=== PATIENT | male | born 1990 | race Caucasian/White ===

== ENCOUNTER 2023-03-01 22:09 | Emergency (ER) | payer OTHER, SELFPAY ==
[2023-03-01 22:13] VITALS: BP 138/94; PULSE 76; O2SAT 98
[2023-03-01 22:35] VITALS: BP 127/79; PULSE 68; RESP 18; TEMP 36.8; BMI 28.3
[2023-03-01 23:22] LABS: Amphetamine Screen Urine Not Detected (Not Detect); Barbiturates, Urine Not Detected (Not Detect); Benzodiazepines Screen Urine Not Detected (Not Detect); Cannabinoid Screen Urine POSITIVE (Not Detect); Cocaine Screen Urine POSITIVE (Not Detect); Fentanyl, urine POSITIVE (Not Detect); Opiate Screen Urine Not Detected (Not Detect); Phencyclidine Screen Urine Not Detected (Not Detect)
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
--- NOTE | 2023-03-02 02:21 | PC.NURSE ---
PT ASLEEP COMFORTABLY ON STRETCHER RESPIRATIONS EVEN AND UNLABORED. PT WOKEN UP BY PROVIDER STATES HE WANTS DETOX UNABLE TO EXPLAIN FURTHER OR ANSWER QUESTIONS PT STATES HE JUST WANTS TO SLEEP AND WANTS TO SEE RECOVERY TEAM IN AM
[2023-03-02 02:22] VITALS: RESP 16
--- NOTE | 2023-03-02 03:57 | PC.NURSE ---
Assumed care of pt. Completed assessments as documented. Pt lying on stretcher, eyes closed, respirations even and unlabored. No acute distress at this time.
[2023-03-02 04:00] VITALS: RESP 16
[2023-03-02 06:26] VITALS: BP 114/81; PULSE 67; RESP 16; TEMP 36.6; O2SAT 99
--- NOTE | 2023-03-02 06:27 | PC.NURSE ---
Pt interested in detox. Pt reports he smoked crack on the way to the ED. Pt reports 10/10 left lower back pain and left hand pain. Pt denies SI/HI Plan of care ongoing.
--- NOTE | 2023-03-02 07:10 | PC.NURSE ---
Report and hand off given to oncoming ALVA felton.
--- NOTE | 2023-03-02 07:11 | PC.NURSE ---
Pt changed over with security on arrival to ED. Pt requested and given hospital phone.
[2023-03-02 07:59] VITALS: BP 105/65; PULSE 69; RESP 18; O2SAT 98
--- NOTE | 2023-03-02 08:57 | PC.NURSE ---
Calm and cooperative, resting comfortably in bed, breathing even and unlabored
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
[2023-03-02] MEDS: Naloxone HCl Nasal TAKE HOME 4 MG SPRAY 8 MG NOSTRILALT (10:40)
== END 2023-03-02 10:40 | disposition home or self-care (01) ==
PROVIDERS: Internal Medicine; Emergency Provider Emergency Medicine Emergency Medical Services
DX: F14.19 Cocaine abuse with unspecified cocaine-induced disorder (principal); F11.19 Opioid abuse with unspecified opioid-induced disorder; Z71.51 Drug abuse counseling and surveillance of drug abuser; Z79.899 Other long term (current) drug therapy
CPT/HCPCS: 80307; 99284

== ENCOUNTER 2024-09-09 01:28 | Inpatient (IN) | payer OTHER, SELFPAY ==
[2024-09-09 01:31] VITALS: BP 134/99; PULSE 95; RESP 18; TEMP 36.7; O2SAT 98; BMI 31.9
--- OUTSIDE RECORDS SUMMARY | 2024-09-09 01:52 | XMS_ITS | Clinical Summary ---
Author Organization [facility] Address [address] [place] [address] Care Team Providers Care Blueprinting And Photocopy Supervisor Name Role Phone Bryson Smith MD Primary Care Provider [phone] Allergies No known active allergies Medications * This document contains information received from the source organization and may not represent a complete record from that organization. lithium 150 mg capsule 01/15/2023 Active QUEtiapine (SEROquel) 200 mg tablet Take 200 mg by mouth nightly. Active Social History Tobacco Use Types Packs/Day Years Used Date Smoking Tobacco: Every Day Cigarettes Tobacco Cessation:Ready to Q uit: Not Asked; Counseling Given: Not Answered Alcohol Use Standard Drinks/Week Comments Yes 0 (1 standard drink = 0.6 oz pur e alcohol) Sex and Gender Information Value Date Recorded Sex Assigned at Not on file Legal Sex Male 6:54 PM EDT Gender Identity Not on file Sexual Orientation Not on file Last Filed Vital Signs Vital Sign [place] Time Taken Comments Blood Pressure 124/80 02/10/2023 9:52 AM EDT Pulse 85 02/10/2023 9:52 AM EDT Temperature 36.9 ??C (98.5 ??F) 02/10/2023 9:52 AM ED T Respiratory Rate 16 02/10/2023 9:52 AM EDT Oxygen Saturation 98% 02/10/2023 9:52 AM EDT Inhaled Oxygen Concentration - - Weight 113.4 kg (250 lb) 02/10/2023 12:01 PM EDT Height 180.3 cm (5' 11 ) 02/09/2023 5:00 AM EDT Body Mass Index 34.87 02/09/2023 5:00 AM EDT Plan of Treatment Health Maintenance Due Date Last Done Comments HIV Screening 1992 Varicella Vaccines (2 of 2 - 2-dose childhood series) 10/15/1997 07/23/1997 COVID-19 Vaccine (2 - 4-2 5 season) 2024 09/14/2020 Alcohol/Substance Use Screening 06/10/2024 Influenza Vaccine (Season Ended) 2025 DTaP,Tdap,and Td Vaccines (2 - Td or Tdap) 07/01/2025 07/01/2015 RSV Vaccine (60+ years old and patients) (1 - 1-dose 75+ series) 02/19/2067 Hepatitis B Vaccines Completed 07/23/1997, 01/28/1997, 12/17/1996 Pneumococcal Vaccine: Pediatric (0-5 Years) and At-Risk Patients (6-50 Years) Aged Out No longer eligible based on patient's age to complete this topic Insurance [facility] Care Teams Blueprinting And Photocopy Supervisor Relationship Specialty Start Date End Date Bryson Smith MD [address] [place] [address] PCP - General 12/27/16
--- NOTE | 2024-09-09 02:04 | PC.NURSE ---
pt changed over prior to coming into the Pod by Kush Chan, Assessment completed, pt laying down in his room, Family members will be here in am regarding his car.
[2024-09-09 02:21] LABS: MANUAL DIFF FLAG NO
[2024-09-09 02:25] LABS: Basophils Percent Auto 0.4 % (0-2); Eosinophils Absolute Auto 0.1 X10*3/uL (0.0-0.4); Eosinophils Percent Auto 0.9 % (0-4); Hematocrit 40.9 % (42.0-52.0); Hemoglobin 13.8 g/dl (14.0-18.0); Imm Gran Abs Auto 0.02 X10*3/uL (0.00-0.03); Imm Gran Pct Auto 0.2 % (0.0-0.4); Lymphocytes Percent Auto 19.3 % (20-40); Mean Corpuscular HGB Conc 33.7 g/dl (31.0-36.0); Mean Corpuscular Volume 79.9 fL (80.0-98.0); Mean Platelet Volume 9.6 fL (9.4-12.4); Monocytes Absolute Auto 0.6 X10*3/uL (0.1-1.2); Monocytes Percent Auto 6.1 % (2-11); Neutrophils Absolute Auto 7.5 x10*3/uL (2.0-8.3); Neutrophils Percent Auto 73.1 % (45-73); Platelet Count 302 X10*3/uL (160-400); Red Blood Count 5.12 X10*6/uL (4.60-5.80); Red Cell Distribution Width 13.1 % (11.0-16.0); White Blood Count 10.2 X10*3/uL (4.8-10.8)
--- NOTE | 2024-09-09 02:30 | MHC.EDTECH ---
belongings searched by dorie Castro and security in main ED. placed in locker #6
[2024-09-09 02:36] LABS: Lithium < 0.10 mmol/L (0.60-1.20)
--- NOTE | 2024-09-09 02:41 | ED.PSYCH ---
HPI - Psych General Chief Complaint: Psychiatric Symptoms Stated Complaint: Mental Health Crisis Time Seen by Provider: 09/09/24 02:00 Source: patient Mode of arrival: ambulatory Limitations: no limitations History of Present Illness ED Provider: Mercedes Anna NP HPI Narrative: Patient is a 34-year-old male who presents emergency department for evaluation. He expresses that he has recently been having a difficult time with increasing anxiety and depression. States he has not been taking time can not tell me exactly how long. Admits to a history of bipolar depression. During initial nursing triage she endorses vague suicidal ideations, however when I asked he denies any suicidal ideations and he denies homicidal ideations. He denies auditory or visual hallucinations. He states that he recently relapsed to drinking alcohol can not tell me exactly when or how much he is drinking, reports that he last Drank a nip of alcohol while checking into the emergency department. All his states that he smoked crack cocaine once last night, and has been smoking marijuana otherwise denies additional recreational drug usage. Offers no physical complaints. Related Data Allergies Allergy/AdvReac Type Severity Reaction Status Date / Time No Known Allergies Allergy Verified 09/09/24 01:33 Review of Systems Review of Systems: Yes all other systems are reviewed and are negative PMFSH Past Medical History Attestation statement: The following information was validated with the patient. Source: old records reviewed Social History Social History Alcohol intake: current Alcohol intake frequency: 0-2 drinks per day Smoked in Last 30 Days: Yes Use of substances other than those prescribed or required for medical reasons: Yes Substance Use Type: Crack/Cocaine and Marijuana Advance Directives: No Advance Directives Information Provided: Yes Do you have a plan to hurt others: No Plan Physical Exam Vital Signs: Vital Signs: Last Vital Signs Temp 98.1 F 09/09/24 01:31 Pulse 95 09/09/24 01:31 Resp 18 09/09/24 01:31 BP 134/99 H 09/09/24 01:31 Pulse Ox 98 09/09/24 01:31 O2 Del Method Room Air 09/09/24 01:31 BMI result Body Mass Index 31.9 Appearance: Alert.?Oriented to person, place and time. No acute distress.?Normal affect. Eyes: Pupils equal, round and reactive to light.? ENT: Pharynx normal.?? Neck: Normal inspection.? Neck supple.?? CVS: Heart sounds normal. Normal heart rate and rhythm.? Pulses normal.?? Respiratory: No respiratory distress.? Lung sounds clear to auscultation bilaterally?? Abdomen: Soft and non-tender. Normoactive bowel sounds. Skin: Skin warm and dry.? Normal skin color.? Extremities: No lower extremity edema.? Neuro: Moves all extremities spontaneously. Sensation intact bilaterally. CN II-XII intact. No focal neuro deficits. Ambulates with normal steady gait. Medical Decision Making Medical Decision Making [facility] Narrative: patient is a 34-year-old male with past medical history of polysubstance use disorder, bipolar disorder who presents emergency department for evaluation, endorsing recent relapse on smoking crack cocaine and alcohol usage as per HPI, initially endorsing vague suicidal ideations during triage, denying suicidal ideations from myself. Will obtain serum labs for medical clearance. Offers no physical concerns and physical examination is benign. Differential Diagnosis Differential Diagnoses: The differential diagnosis associated with the presentation includes (See narrative above and below for further detail) Admission/Observation Consideration of admission/observation: Escalation of care including admission/observation considered Patient is being observed in the Emergency Department for depression and anxiety. Observation time was started at 03:09 on 09/09/2024.?The patient is currently stable and non-toxic appearing. Observation is being initiated in the Emergency Department to allow time to help differentiate if the patient's depression and anxiety is due to Substance Induced Mood Disorder and Anxiety versus Major Depressive Disorder, Bipolar Kaylan, Bipolar Depression, and Schizophrenia. The patient will receive frequent psychiatric assessments from the provider as well as from nursing staff. The patient will also be monitored for the need of PRN agitation medications such as Haldol, Ativan, and Benadryl. Consult Healthcare Provider Management of the patient was discussed with: Behavioral Health Provider (CARE team) Lab Data [facility] Lab Attestation statement: I reviewed the patient's lab results. CBC is without leukocytosis, has a mild anemia not meet transfusion criteria, no thrombocytopenia. No electrolyte derangement. No IZA. Overall unremarkable LFTs. Snyder level nondetectable. Alcohol level of 19. 09/09/24 02:17 09/09/24 02:17 Labs: Lab Results 09/09/24 Range/Units 02:17 WBC 10.2 (4.8-10.8) X10*3/uL RBC 5.12 (4.60-5.80) X10*6/uL Hgb 13.8 L (14.0-18.0) g/dl Hct 40.9 L (42.0-52.0) % MCV 79.9 L (80.0-98.0) fL MCH 27.0 (27.0-33.0) pg MCHC 33.7 (31.0-36.0) g/dl RDW 13.1 (11.0-16.0) % Plt Count 302 (160-400) X10*3/uL MPV 9.6 (9.4-12.4) fL Immature Gran % (Auto) 0.2 (0.0-0.4) % Neut % (Auto) 73.1 H (45-73) % Lymph % (Auto) 19.3 L (20-40) % Cache % (Auto) 6.1 (2-11) % Eos % (Auto) 0.9 (0-4) % Baso % (Auto) 0.4 (0-2) % Lymph # (Auto) 2.0 (1.2-4.9) X10*3/uL Cache # (Auto) 0.6 (0.1-1.2) X10*3/uL Eos # (Auto) 0.1 (0.0-0.4) X10*3/uL Baso # (Auto) 0.0 (0.0-0.2) X10*3/uL Abs Immat Gran (auto) 0.02 (0.00-0.03) X10*3/uL Absolute Neuts (auto) 7.5 (2.0-8.3) x10*3/uL Absolute Nucleated RBC 0.000 (0.0-0.012) X10*3/uL Nucleated RBC % (auto) 0.0 (0.0-0.2) /100WBC Sodium 141 (135-145) mmol/L Potassium 3.7 (3.3-5.1) mmol/L Chloride 108 (96-108) mmol/L Carbon Dioxide 23 (22-29) mmol/L Anion Gap 14 (12-20) BUN 9 (9-16) mg/dL Creatinine 0.78 (0.5-1.4) mg/dL Estim Creat Clear Calc 171.5 Estimated GFR > 60 Random Glucose 103 (60-115) mg/dL Calcium 9.8 (8.4-10.2) mg/dL Total Bilirubin 0.7 (0.0-1.0) mg/dL AST 39 H (5-37) U/L ALT 29 (0-40) U/L Alkaline Phosphatase 76 (39-117) U/L Total Protein 7.8 (6.5-8.0) g/dL Albumin 4.8 (3.5-5.0) g/dL Salicylates < 5.0 L (15-30) mg/dL Acetaminophen < 3 (<30) mcg/mL Snyder < 0.10 L (0.60-1.20) mmol/L Ethyl Alcohol 19 mg/dL External Record Review External record reviewed: Outpatient record Chronic Conditions Patient?s care impacted by: Other ( See narrative above) Discharge Plan Discharge Clinical Impression: Polysubstance use disorder, Bipolar disorder, Depression Interventions: Mountain-Suicide Risk Severity Scale Last Done: 09/09/24 02:00 Print Language: South Korean
[2024-09-09 02:42] LABS: Acetaminophen LAB < 3 mcg/mL (<30); Salicylate < 5.0 mg/dL (15-30)
[2024-09-09 02:47] LABS: Alanine Aminotransferase 29 U/L (0-40); Albumin Level 4.8 g/dL (3.5-5.0); Alkaline Phosphatase 76 U/L (39-117); Anion Gap 14 (12-20); Aspartate Amino Transferase 39 U/L (5-37); Bilirubin Total 0.7 mg/dL (0.0-1.0); Blood Urea Nitrogen 9 mg/dL (9-16); Calcium 9.8 mg/dL (8.4-10.2); Carbon Dioxide 23 mmol/L (22-29); Chloride 108 mmol/L (96-108); Creatinine Clr Calc Pharmacy 171.5; Estimated Glomerular Filt Rate > 60; Ethanol 19 mg/dL; Glucose Random 103 mg/dL (60-115); Potassium 3.7 mmol/L (3.3-5.1); Sodium 141 mmol/L (135-145); Total Protein 7.8 g/dL (6.5-8.0)
[2024-09-09 03:33] LABS: Influenza A PCR NEGATIVE (Negative); Influenza B PCR NEGATIVE (Negative); Resp Syncy Virus RNA Qual PCR NEGATIVE (Negative); SARS COV2 PCR INHOUSE NEGATIVE (Negative)
[2024-09-09 06:10] VITALS: RESP 16
[2024-09-09 06:45] LABS: Appearance Urine Clear; Color Urine Dark Yellow; Glucose Urine UA Negative (Negative); Leukocyte Esterase Urine Negative (Negative); Nitrite Urine Negative (Negative); Specific Gravity - Urine >= 1.030 (1.005-1.025); UMIC TRIGGER UACC YES; Urine Blood Negative (Negative); Urine Ketones 15 mg/dL (Negative); Urine Protein 30 (1+) mg/dL (Neg-Trace)
[2024-09-09 06:50] LABS: Bacteria Urine None Seen (None Seen); RBC Urine 0-2 /HPF (0-2); Squamous Epithelial Cell Urine 0-2 /HPF (0-2); WBC Urine 0-5 /HPF (0-5)
[2024-09-09 06:53] LABS: Amphetamine Screen Urine Not Detected (Not Detect); Barbiturates, Urine Not Detected (Not Detect); Benzodiazepines Screen Urine Not Detected (Not Detect); Buprenorphine Scr Not Detected (Not Detect); Cannabinoid Screen Urine POSITIVE (Not Detect); Cocaine Screen Urine POSITIVE (Not Detect); Fentanyl, urine Not Detected (Not Detect); Methadone Screen, Urine Not Detected (Not Detect); Opiate Screen Urine Not Detected (Not Detect); Oxycodone Screen Urine Not Detected (Not Detect); Phencyclidine Screen Urine Not Detected (Not Detect)
--- NOTE | 2024-09-09 09:10 | PC.NURSE ---
medications confirmed with pt and with pharmacy fill records. he does not know when he last took his meds. pt states i don't know, i've been out drinking for like the past week. i haven't had them in like 4 days or something
[2024-09-09] MEDS: Nicotine Polacrilex 2 MG GUM BUCCAL (09:55)
[2024-09-09] MEDS: Lithium Carbonate 300 MG CAPSULE PO (09:55)
[2024-09-09] MEDS: LORazepam 1 MG TABLET PO (10:00)
--- NOTE | 2024-09-09 10:16 | ECG_ITS ---
Test Reason : QT CHECK Blood Pressure : */* mmHG Vent. Rate : 72 BPM Atrial Rate : 72 BPM P-R Int : 152 ms QRS Dur : 92 ms QT Int : 408 ms P-R-T Axes : 58 -18 33 degrees QTcB Int : 446 ms Normal sinus rhythm Normal ECG No previous ECGs available Referred By: Mercedes Anna Electronically Signed By: ANTONETTE JIMENEZ
[2024-09-09] MEDS: LORazepam 2 MG/ML VIAL IM (11:58)
[2024-09-09] MEDS: OLANZapine 10 MG VIAL IM (11:59)
--- NOTE | 2024-09-09 12:03 | PC.NURSE ---
pt agitated and threatening toward staff. took IM medications willingly and without physical restraint.
--- NOTE | 2024-09-09 15:08 | PHA.MEDREC ---
Pharmacy Consult ? Medication Reconciliation Pharmacy has reviewed the medication reconciliation done by nursing.
[2024-09-09 17:52] VITALS: BP 130/92; PULSE 92; RESP 16; TEMP 36.6; O2SAT 98
[2024-09-09 17:59] VITALS: BMI 31.4
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
[2024-09-09 19:43] VITALS: BP 133/64; PULSE 97; RESP 16; TEMP 36.5; O2SAT 99
[2024-09-09] MEDS: QUEtiapine Fumarate 400 MG TABLET PO (21:41)
[2024-09-10] MEDS: LORazepam 1 MG TABLET 2 MG PO ×2 (00:08→03:32)
[2024-09-10] MEDS: traZODone HCL 50 MG TABLET PO (00:08)
[2024-09-10] MEDS: OLANZapine 5 MG TABLET PO ×4 (00:08→18:47)
[2024-09-10] MEDS: hydrOXYzine HCL 25 MG TABLET PO (00:08)
--- NOTE | 2024-09-10 00:12 | PC.NURSE ---
Patient irritable and agitated at 2350. Was upset with roommate and started yelling and threatening his roommate. Patient redirected, assisted to group room A to sleep. Patient was a 15 on CIWA score. Patient willing to take prn medications for withdrawals and agitation.
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
--- NOTE | 2024-09-10 07:20 | PC.NURSE ---
Patient will be a 1:1 due to his confusion and inability to be redirected.
--- NOTE | 2024-09-10 07:26 | PC.NURSE ---
Roosevelt was too confused and agitated to sign OVIDIO or treatment plan. He also needs to do safety tool.
[2024-09-10] MEDS: Lithium Carbonate 300 MG CAPSULE PO (08:48)
[2024-09-10] MEDS: Thiamine HCL 100 MG TABLET PO (08:48)
[2024-09-10] MEDS: Folic Acid 1 MG TABLET PO (08:48)
[2024-09-10] MEDS: LORazepam 1 MG TABLET PO ×6 (08:57→22:07)
[2024-09-10 09:05] VITALS: BP 127/72; PULSE 81; TEMP 36.8; O2SAT 96
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
[2024-09-10] MEDS: Nicotine Polacrilex 2 MG GUM 4 MG BUCCAL ×2 (13:01→19:54)
[2024-09-10 20:00] VITALS: BP 131/80; PULSE 97; TEMP 36.2; O2SAT 98
[2024-09-10] MEDS: QUEtiapine Fumarate 400 MG TABLET PO (21:55)
[2024-09-10] MEDS: Acetaminophen 325 MG TABLET 650 MG PO (22:07)
[2024-09-11] MEDS: hydrOXYzine HCL 25 MG TABLET PO (02:04)
[2024-09-11] MEDS: OLANZapine 5 MG TABLET PO ×3 (02:04→20:18)
[2024-09-11] MEDS: QUEtiapine Fumarate 100 MG TABLET PO (06:44)
[2024-09-11 08:00] VITALS: BP 167/113; PULSE 111; TEMP 36.4; O2SAT 96
[2024-09-11] MEDS: Lithium Carbonate 300 MG CAPSULE PO ×2 (08:40→10:05)
[2024-09-11] MEDS: Thiamine HCL 100 MG TABLET PO (08:40)
[2024-09-11] MEDS: LORazepam 1 MG TABLET PO ×5 (08:40→20:18)
[2024-09-11] MEDS: Folic Acid 1 MG TABLET PO (08:40)
[2024-09-11] MEDS: Nicotine Polacrilex 2 MG GUM BUCCAL (11:55)
[2024-09-11 12:33] LABS: Alanine Aminotransferase 34 U/L (0-40); Albumin Level 5.1 g/dL (3.5-5.0); Alkaline Phosphatase 76 U/L (39-117); Anion Gap 10 (12-20); Aspartate Amino Transferase 42 U/L (5-37); Bilirubin Total 0.4 mg/dL (0.0-1.0); Blood Urea Nitrogen 8 mg/dL (9-16); Carbon Dioxide 27 mmol/L (22-29); Chloride 108 mmol/L (96-108); Estimated Glomerular Filt Rate > 60; Glucose Random 107 mg/dL (60-115); Potassium 4.1 mmol/L (3.3-5.1); Sodium 141 mmol/L (135-145); Total Protein 7.8 g/dL (6.5-8.0)
[2024-09-11 12:42] LABS: Cholesterol 129 mg/dL (<200); HDL Cholesterol 38 mg/dL (>40); LDL Cholesterol Calculated 82 mg/dL (<100); Triglycerides 49 mg/dL (<150)
[2024-09-11 12:53] LABS: Estimated Average Glucose 105 mg/dL; Hemoglobin A1C 125.0764 umol/L; Hemoglobin A1c % 5.3 % (<6.0); Total Hemoglobin (HGBA1C) 3605.1308 umol/L
[2024-09-11 12:56] LABS: TSH reflex Free T4 0.52 uIU/mL (0.32-4.0)
[2024-09-11] MEDS: QUEtiapine Fumarate 200 MG TABLET PO (13:45)
[2024-09-11] MEDS: Divalproex Sodium 250 MG TABLET.DR 750 MG PO (14:44)
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
[2024-09-11 20:00] VITALS: BP 132/86; PULSE 111; RESP 16; TEMP 36.8; O2SAT 98
[2024-09-11] MEDS: Divalproex Sodium ER 500 MG TAB.ER.24H PO (20:18)
[2024-09-11] MEDS: traZODone HCL 50 MG TABLET PO ×2 (20:18→21:54)
[2024-09-11] MEDS: OLANZapine ODT 10 MG TAB.RAPDIS TRANSLINGU (20:18)
[2024-09-11] MEDS: QUEtiapine Fumarate 400 MG TABLET PO (20:18)
[2024-09-11] MEDS: hydrOXYzine HCL 50 MG TABLET PO (21:54)
[2024-09-12] MEDS: Divalproex Sodium 500 MG TABLET.DR PO (02:51)
[2024-09-12] MEDS: HaloperidoL 5 MG TABLET PO ×2 (02:51→23:58)
[2024-09-12] MEDS: traZODone HCL 50 MG TABLET PO ×2 (02:51→23:58)
[2024-09-12 08:00] VITALS: RESP 18; TEMP 36.3; O2SAT 98
[2024-09-12] MEDS: Thiamine HCL 100 MG TABLET PO (08:11)
[2024-09-12] MEDS: QUEtiapine Fumarate 200 MG TABLET PO (08:11)
[2024-09-12] MEDS: Lithium Carbonate ER 300 MG TABLET.ER 600 MG PO (08:11)
[2024-09-12 08:53] LABS: Ammonia 76 umol/L (13-55)
[2024-09-12 08:57] LABS: Lithium 0.28 mmol/L (0.60-1.20)
[2024-09-12 09:05] LABS: Alanine Aminotransferase 31 U/L (0-40); Albumin Level 5.1 g/dL (3.5-5.0); Alkaline Phosphatase 80 U/L (39-117); Anion Gap 13 (12-20); Aspartate Amino Transferase 42 U/L (5-37); Bilirubin Total 0.6 mg/dL (0.0-1.0); Blood Urea Nitrogen 9 mg/dL (9-16); Calcium 10.1 mg/dL (8.4-10.2); Carbon Dioxide 24 mmol/L (22-29); Chloride 107 mmol/L (96-108); Creatinine Clr Calc Pharmacy 154.4; Estimated Glomerular Filt Rate > 60; Glucose Random 118 mg/dL (60-115); Potassium 4.4 mmol/L (3.3-5.1); Sodium 140 mmol/L (135-145); Total Protein 7.9 g/dL (6.5-8.0)
[2024-09-12] MEDS: Lactulose 20 GM/30 ML SOLUTION 40 GM PO (09:39)
[2024-09-12] MEDS: levOCARNitine Oral Sol 1,000 MG/10 ML UD Cup 300 MG PO ×2 (15:54→21:07)
[2024-09-12] MEDS: Nicotine Polacrilex 2 MG GUM 4 MG BUCCAL ×2 (16:49→19:58)
[2024-09-12 20:00] VITALS: BP 129/90; PULSE 92; RESP 16; TEMP 36.4; O2SAT 100
[2024-09-12] MEDS: Divalproex Sodium ER 500 MG TAB.ER.24H 1000 MG PO (21:07)
[2024-09-12] MEDS: QUEtiapine Fumarate 400 MG TABLET PO (21:07)
[2024-09-12] MEDS: Lactulose 20 GM/30 ML SOLUTION PO (21:09)
[2024-09-12] MEDS: hydrOXYzine HCL 50 MG TABLET PO (23:58)
[2024-09-13] MEDS: LORazepam 1 MG TABLET PO (01:31)
[2024-09-13] MEDS: HaloperidoL 5 MG TABLET PO ×2 (05:06→23:36)
[2024-09-13] MEDS: Lithium Carbonate ER 300 MG TABLET.ER 600 MG PO (07:50)
[2024-09-13] MEDS: Lactulose 20 GM/30 ML SOLUTION PO ×2 (07:50→20:58)
[2024-09-13] MEDS: Thiamine HCL 100 MG TABLET PO (07:50)
[2024-09-13] MEDS: QUEtiapine Fumarate 200 MG TABLET PO (07:50)
[2024-09-13] MEDS: levOCARNitine Oral Sol 1,000 MG/10 ML UD Cup 300 MG PO ×3 (07:50→20:58)
[2024-09-13] MEDS: Nicotine Polacrilex 2 MG GUM 4 MG BUCCAL ×2 (07:53→19:57)
[2024-09-13 08:00] VITALS: BP 126/77; PULSE 84; RESP 18; TEMP 36.4; O2SAT 100
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
[2024-09-13 13:28] LABS: Ammonia 59 umol/L (13-55)
[2024-09-13 19:54] VITALS: BP 135/84; PULSE 73; RESP 15; TEMP 36.3; O2SAT 100
[2024-09-13] MEDS: Divalproex Sodium ER 500 MG TAB.ER.24H 1000 MG PO (20:57)
[2024-09-13] MEDS: QUEtiapine Fumarate 400 MG TABLET PO (20:57)
[2024-09-13] MEDS: hydrOXYzine HCL 50 MG TABLET PO (20:57)
[2024-09-13] MEDS: traZODone HCL 50 MG TABLET PO (23:36)
[2024-09-14] MEDS: hydrOXYzine HCL 50 MG TABLET PO (02:43)
[2024-09-14] MEDS: Nicotine Polacrilex 2 MG GUM 4 MG BUCCAL ×6 (02:44→22:09)
[2024-09-14] MEDS: HaloperidoL 5 MG TABLET PO (05:08)
[2024-09-14 07:55] VITALS: BP 118/82; PULSE 99; RESP 18; TEMP 36.1; O2SAT 97
[2024-09-14] MEDS: Lactulose 20 GM/30 ML SOLUTION PO ×2 (08:04→21:26)
[2024-09-14] MEDS: Thiamine HCL 100 MG TABLET PO (08:04)
[2024-09-14] MEDS: Lithium Carbonate ER 300 MG TABLET.ER 600 MG PO (08:04)
[2024-09-14] MEDS: levOCARNitine Oral Sol 1,000 MG/10 ML UD Cup 300 MG PO ×3 (08:04→21:26)
[2024-09-14] MEDS: QUEtiapine Fumarate 200 MG TABLET PO (08:04)
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
[2024-09-14 20:00] VITALS: BP 114/67; PULSE 76; RESP 18; TEMP 36.7; O2SAT 97
[2024-09-14] MEDS: QUEtiapine Fumarate 400 MG TABLET PO (21:27)
[2024-09-14] MEDS: Divalproex Sodium ER 500 MG TAB.ER.24H 1000 MG PO (21:27)
[2024-09-15] MEDS: traZODone HCL 50 MG TABLET PO (02:03)
[2024-09-15] MEDS: Nicotine Polacrilex 2 MG GUM 4 MG BUCCAL ×6 (02:03→21:11)
[2024-09-15 07:55] LABS: Lithium 0.19 mmol/L (0.60-1.20)
[2024-09-15 07:58] LABS: Ammonia 63 umol/L (13-55)
[2024-09-15 07:59] LABS: Valproate 55.4 mcg/mL (50.0-100.0)
[2024-09-15 08:02] VITALS: BP 123/65; PULSE 92; TEMP 36.2; O2SAT 98
[2024-09-15] MEDS: Lactulose 20 GM/30 ML SOLUTION PO ×2 (08:30→21:10)
[2024-09-15] MEDS: levOCARNitine Oral Sol 1,000 MG/10 ML UD Cup 300 MG PO ×3 (08:30→21:10)
[2024-09-15] MEDS: QUEtiapine Fumarate 200 MG TABLET PO (08:31)
[2024-09-15] MEDS: Lithium Carbonate ER 300 MG TABLET.ER 600 MG PO (08:31)
[2024-09-15] MEDS: Thiamine HCL 100 MG TABLET PO (08:31)
[2024-09-15 09:27] LABS: Anion Gap 13 (12-20)
[2024-09-15 09:28] LABS: Alanine Aminotransferase 35 U/L (0-40); Albumin Level 4.5 g/dL (3.5-5.0); Aspartate Amino Transferase 30 U/L (5-37); Bilirubin Direct < 0.2 mg/dL (0.0-0.5); Bilirubin Total 0.2 mg/dL (0.0-1.0); Blood Urea Nitrogen 12 mg/dL (9-16); Calcium 10.4 mg/dL (8.4-10.2); Carbon Dioxide 29 mmol/L (22-29); Chloride 106 mmol/L (96-108); Estimated Glomerular Filt Rate > 60; Glucose Random 93 mg/dL (60-115); Potassium 4.8 mmol/L (3.3-5.1); Sodium 143 mmol/L (135-145); Total Protein 7.2 g/dL (6.5-8.0)
[2024-09-15 09:37] LABS: Alkaline Phosphatase 72 U/L (39-117)
[2024-09-15] MEDS: hydrOXYzine HCL 50 MG TABLET PO ×2 (12:34→17:06)
[2024-09-15 17:08] VITALS: BMI 31.9
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
[2024-09-15 20:00] VITALS: BP 133/85; PULSE 88; TEMP 36.2; O2SAT 99
[2024-09-15] MEDS: QUEtiapine Fumarate 400 MG TABLET PO (21:10)
[2024-09-15] MEDS: Divalproex Sodium ER 500 MG TAB.ER.24H 1000 MG PO (21:10)
[2024-09-16] MEDS: Acetaminophen 325 MG TABLET 650 MG PO (03:19)
[2024-09-16] MEDS: HaloperidoL 5 MG TABLET PO (03:19)
[2024-09-16] MEDS: Nicotine Polacrilex 2 MG GUM 4 MG BUCCAL ×3 (03:49→09:13)
[2024-09-16] MEDS: hydrOXYzine HCL 50 MG TABLET PO (06:41)
[2024-09-16] MEDS: Lactulose 20 GM/30 ML SOLUTION PO (07:52)
[2024-09-16] MEDS: levOCARNitine Oral Sol 1,000 MG/10 ML UD Cup 300 MG PO (07:52)
[2024-09-16] MEDS: QUEtiapine Fumarate 200 MG TABLET PO (07:53)
[2024-09-16] MEDS: Thiamine HCL 100 MG TABLET PO (07:53)
[2024-09-16] MEDS: Lithium Carbonate ER 300 MG TABLET.ER 600 MG PO (07:53)
[2024-09-16 07:56] VITALS: BP 137/69; PULSE 85; RESP 18; TEMP 36.4; O2SAT 97
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
[2024-09-16] MEDS: Naloxone HCl Nasal TAKE HOME 4 MG SPRAY 8 MG NOSTRILALT (08:51)
[2024-09-16 09:44] LABS: Ammonia 43 umol/L (13-55)
== END 2024-09-16 11:44 | disposition home or self-care (01) | DRG 885 ==
LOC: HO.ED 03:12 → HO.PM5 15:02
PROVIDERS: Admitting Provider Psychiatry & Neurology Psychiatry; Emergency Provider Internal Medicine; Visit Provider Psychiatry & Neurology Psychiatry
DX: F31.9 Bipolar disorder, unspecified (principal); F17.210 Nicotine dependence, cigarettes, uncomplicated; Z71.6 Tobacco abuse counseling; F14.10 Cocaine abuse, uncomplicated; F10.90 Alcohol use, unspecified, uncomplicated; Z20.822 Contact with and (suspected) exposure to COVID-19; Z79.899 Other long term (current) drug therapy
CPT/HCPCS: 0241U; 36415; 80048; 80053; 80061; 80076; 80143; 80164; 80178; 80179; 80307; 81001; 82140; 83036; 84443; 85025; 87635; 93005; 99285; J2060; J2359; S9485

== ENCOUNTER → 2024-09-09 10:16 | Outpatient (BNV) | payer OTHER, SELFPAY | PROVIDERS: Admitting Provider Psychiatry & Neurology Psychiatry; Emergency Provider Internal Medicine; Visit Provider Internal Medicine | DX: Z13.6 Encounter for screening for cardiovascular disorders (principal) | CPT/HCPCS: 93010 ==

== ENCOUNTER → 2024-09-09 14:38 | Outpatient (BNV) | payer OTHER, SELFPAY | PROVIDERS: Admitting Provider Psychiatry & Neurology Psychiatry; Emergency Provider Internal Medicine; Visit Provider Psychiatry & Neurology Psychiatry | DX: F31.13 Bipolar disorder, current episode manic without psychotic features, severe (principal); F14.10 Cocaine abuse, uncomplicated; F10.90 Alcohol use, unspecified, uncomplicated | CPT/HCPCS: 90792; 99232; 99239 ==

== ENCOUNTER 2024-09-19 09:36 | Emergency (ER) | payer OTHER, SELFPAY ==
--- NOTE | ~2024-09-19 | XR_ITS ---
CLINICAL HISTORY: lateral and 4 5th toe pain 3 views right foot Comparison: None Findings: No fractures, subluxations or dislocations. No periostitis or bony destruction. Mild joint space narrowing of the interphalangeal joints No marginal erosions or overhanging osteophytes Calcaneus and subtalar joint intact. Bunion/mild hallux valgus 1st metatarsophalangeal joint. No plantar calcaneal spur. Normal bone mineralization and soft tissues. Normal pre-Achilles fat pad. No radiopaque foreign body. Impression: 1. No acute fractures malalignment or bony destructive processes This document has been electronically signed by: Malcolm Varela MD on 09/19/2024 10:24:36
--- NOTE | ~2024-09-19 | US_ITS ---
CLINICAL HISTORY: RLE pain. recent admission Right lower extremity duplex venous Doppler Comparison: None Technique: Grayscale/Color/Duplex Doppler sonographic evaluation of the deep venous system within the right lower extremity. Findings: Right lower extremity Common femoral vein: Patent CFV/GSV junction: Patent Femoral vein: Patent Popliteal vein: Patent Infrapopliteal veins: Patent where seen Soft tissue: No focal abnormality Impression: 1. Negative for right lower extremity DVT. 2. No Rojas's cyst This document has been electronically signed by: Malcolm Varela MD on 09/19/2024 11:32:46
--- NOTE | ~2024-09-19 | XR_ITS ---
CLINICAL HISTORY: lateral tenderness 3 views right ankle Comparison: None Findings: No fractures, subluxations or dislocations. Ankle mortise intact. Normal plafond. No osteochondral lesions. Calcaneus and subtalar joint intact. Mild joint space narrowing talonavicular joint with subchondral sclerosis No plantar calcaneal spur. Normal bone mineralization and soft tissues. Normal pre-Achilles fat pad. No radiopaque foreign body. Impression: 1. No acute fractures or malalignment. This document has been electronically signed by: Malcolm Varela MD on 09/19/2024 10:27:49
[2024-09-19 09:46] VITALS: BP 125/80; PULSE 76; RESP 16; TEMP 36.6; O2SAT 100; BMI 31.6
--- NOTE | 2024-09-19 09:49 | ED.GENADULT ---
HPI - General Adult General Chief complaint: Extremity Injury, Lower Stated complaint: Right ankle pain, toe pain on right foot Time Seen by Provider: 09/19/24 09:57 Source: patient, RN notes reviewed and old records reviewed Mode of arrival: ambulatory History of Present Illness ED Provider: Lroi Menon PA-C HPI narrative: 34-year-old male with a past medical history of bipolar, ETOH use disorder, cocaine use disorder, recently discharged from inpatient psychiatry on 09/16/2024 presenting to the ED complaining of right foot pain / 3-5th toes paresthesias x few days. Admits pain is radiating to right calf. Denies known injury/trauma or fall however states he may have stubbed toe while inpatient or prior to hospital presentation while intoxicated. Denies fever, chills, weakness, CP/SOB Related Data Previous Rx's ?Medication ?Instructions ?Recorded nicotine (polacrilex) 4 mg gum 4 mg buccal Q2H 30 days #100 ea 09/15/24 divalproex 500 mg tablet,extended 1,000 mg (2 x 500 mg) PO BEDTIME 09/16/24 release 24 hr 30 days #60 tabs hydroxyzine HCl 50 mg tablet 50 mg PO Q6H PRN mild anxiety 30 09/16/24 days #60 tabs lactulose 10 gram/15 mL oral 20 g (30 mL) PO BID 30 days #1,800 09/16/24 solution mL lithium carbonate 300 mg 600 mg (2 x 300 mg) PO DAILY 30 09/16/24 tablet,extended release days #60 tabs quetiapine 200 mg tablet 200 mg PO DAILY 30 days #30 tabs 09/16/24 quetiapine 400 mg tablet 400 mg PO BEDTIME 30 days #30 tabs 09/16/24 trazodone 50 mg tablet 50 mg PO BEDTIME PRN Insomnia 30 09/16/24 days #30 tabs levocarnitine (with sugar) 100 330 mg PO TID 30 days #500 mL 09/18/24 mg/mL oral solution acetaminophen 500 mg tablet 500 mg PO Q6H PRN fever or pain 09/19/24 (Tylenol Extra Strength) #14 tabs ibuprofen 800 mg tablet 800 mg PO Q8H PRN pain #14 tabs 09/19/24 Allergies Allergy/AdvReac Type Severity Reaction Status Date / Time No Known Allergies Allergy Verified 09/19/24 09:46 Review of Systems Review of Systems: Yes all other systems are reviewed and are negative Constitutional: Constitutional: Reports as per [facility] Past Medical History Attestation statement: The following information was validated with the patient. Source: old records reviewed Medical History Cocaine use disorder Alcohol use disorder Social History Social History Household Members: Friend(s) Housing: Apartment Do you presently have visiting nurse or other home services: No Alcohol intake: current Alcohol intake frequency: 0-2 drinks per day Comment: 1:1 observation. Patient Tobacco Use Status: Current everyday Tobacco user Tobacco use type: Cigarette Cigarette Packs Per Day: 1.5 Cigarettes Per Day: 30.0 Substance Use Type: Crack/Cocaine and Marijuana Advance Directives: No Advance Directives Information Provided: No Do you have a plan to hurt others: No Plan service: Yes Sexual orientation: Straight/Heterosexual Physical Exam ED Vital Signs: Vital Signs - 24 hr 09/19/24 09:46 09/19/24 12:01 Temperature 97.8 F 97.8 F Pulse Rate 76 76 Respiratory Rate 16 16 Blood Pressure 125/80 125/80 Pulse Oximetry 100 100 Oxygen Delivery Method Room Air Room Air BMI result Body Mass Index 31.6 Const General: cooperative, healthy appearing and no acute distress Orientation/consciousness: patient oriented x3 Limitations: no limitations HENMT Head: Yes normal to inspection and Yes atraumatic Ears: hearing grossly normal bilaterally General nose exam: Normal external nose present Face and sinus: Yes normal facial exam Eyes General: appearance normal, both eyes and all related structures EOM: EOMs intact bilaterally Neck Neck: Yes normal visual inspection and Yes no meningeal signs Resp Effort & Inspection: normal respiratory effort and no respiratory distress Cardio Rate: regular rate Skin Rashes: no rashes Wounds: no wounds Neuro General: patient oriented x3, tone normal and no meningeal signs Cranial nerves: Yes CN's II-XII intact bilaterally Gait exam (Neuro): Normal gait present Extrem Other: Right foot without noted deformity. No erythema/swelling or crepitus. Mild tenderness to 3rd through 5th toes. Neurovascularly intact. Mild swelling appreciated to RLE. No pitting edema. No calf tenderness. FROM intact General: Yes normal to inspection Course Course Course Narrative: This is a rapid medical exam performed by Jesus Lawrence NP: Additional HPI, ROS, PE not included below will be deferred to primary provider. 09/19/24 09:51 Patient is a 34-year-old male with history of polysubstance use disorder, alcohol use disorder, Bipolar disorder, depression presenting with right lateral ankle pain, numbness to 4th/5th toes for past few days. States he was recently here while intoxicated, not sure if he injured his foot/ankle while he was intoxicated, does not remember. Plan: xrays 1153--XR foot RT min 3V / XR ankle RT min 3V Impression: 1. No acute fractures malalignment or bony destructive processes US venous duplex LE RT Impression: 1. Negative for right lower extremity DVT. 2. No Rojas's cyst Results discussed with patient including worrisome signs and symptoms and strict return precautions, and when to return to the emergency department. They verbalized understanding and feel safe for discharge at this time. Medical Decision Making Medical Decision Making MDM Narrative: 34-year-old male with a past medical history of bipolar, ETOH use disorder, cocaine use disorder, recently discharged from inpatient psychiatry on 09/16/2024 presenting to the ED complaining of right foot pain / 3-5th toes paresthesias x few days. On exam vital signs stable, NAD, nontoxic appearing, physical exam as noted above. Concern for fracture vs sprain vs contusion vs DVT. Lower suspicion for PE at this time. No evidence of cellulitis or compartment syndrome Plan: X-ray, ultrasound Please refer to course for remaining clinical decision making, interpretation of labs/imaging results, and discussions with consultants and/or family members. Differential Diagnosis Differential Diagnoses: The differential diagnosis associated with the presentation includes As above Admission/Observation Consideration of admission/observation: Escalation of care including admission/observation considered Independent Interpretation I performed an independent interpretation of an: Plain X-Ray and Ultrasound Radiology Impression Discussion of test interpretation with radiology: I have reviewed the radiologist's reading. External Record Review External record reviewed: Inpatient record, Office record, Outpatient record, Prior outpatient labs, Prior outpatient radiology, Primary care record and Outside ED record Tests considered The following testing was considered but not selected: As above Prescription Management I considered prescription management with: Pain Medication Chronic Conditions Patient?s care impacted by: Other Social Determinants Patient?s care significantly limited by Social Determinants of Health including: Inadequate housing, Alcoholism and drug addiction in family and Other Social Determinant of Health Discharge Plan Discharge Clinical Impression: Acute pain of right foot Patient Disposition: Home, Self-Care Instructions: Arthralgia (ED) Additional Instructions: Your x-ray and ultrasound were unremarkable Ice and elevate Take Tylenol and ibuprofen as needed Follow up with her doctor If pain persists or worsens/becomes unbearable return to the ED Prescriptions: New ibuprofen 800 mg tablet 800 mg PO Q8H PRN (Reason: pain) Qty: 14 0RF acetaminophen [Tylenol Extra Strength] 500 mg tablet 500 mg PO Q6H PRN (Reason: fever or pain) Qty: 14 0RF No Action nicotine (polacrilex) 4 mg gum 4 mg buccal Q2H 30 Days Qty: 100 0RF divalproex 500 mg Tablet Extended Release 24 Hr 1,000 mg PO BEDTIME 30 Days Qty: 60 0RF lithium carbonate 300 mg Tablet Extended Release 600 mg PO DAILY 30 Days Qty: 60 0RF hydroxyzine HCl 50 mg Tablet 50 mg PO Q6H PRN (Reason: mild anxiety) 30 Days Qty: 60 0RF quetiapine 200 mg Tablet 200 mg PO DAILY 30 Days Qty: 30 0RF trazodone 50 mg Tablet 50 mg PO BEDTIME PRN (Reason: Insomnia) 30 Days Qty: 30 0RF lactulose 10 gram/15 mL Solution 20 g PO BID 30 Days Qty: 1800 0RF quetiapine 400 mg tablet 400 mg PO BEDTIME 30 Days Qty: 30 0RF levocarnitine (with sugar) 100 mg/mL solution 330 mg PO TID 30 Days Qty: 500 0RF Referrals: Physician,None [Primary Care Provider] - 1 week Interventions: ED Discharge Assessment Last Done: 09/19/24 12:01 Discharge Date/Time: 09/19/24 12:01 Print Language: Kiswahili
[2024-09-19 12:01] VITALS: BP 125/80; PULSE 76; RESP 16; TEMP 36.6; O2SAT 100
== END 2024-09-19 12:01 | disposition home or self-care (01) ==
PROVIDERS: Emergency Provider Emergency Medicine
DX: M79.671 Pain in right foot (principal); R60.0 Localized edema; F14.90 Cocaine use, unspecified, uncomplicated; F17.210 Nicotine dependence, cigarettes, uncomplicated; Z71.51 Drug abuse counseling and surveillance of drug abuser; Z79.899 Other long term (current) drug therapy
CPT/HCPCS: 73610; 73630; 93971; 99282; 99284

== ENCOUNTER → 2024-09-19 09:51 | Outpatient (BNV) | payer OTHER, SELFPAY | PROVIDERS: Emergency Provider Emergency Medicine; Visit Provider Radiology Diagnostic Radiology | DX: M25.571 Pain in right ankle and joints of right foot (principal); M79.604 Pain in right leg | CPT/HCPCS: 73610; 73630; 93971 ==

== ENCOUNTER 2024-09-25 02:07 | Emergency (ER) | payer OTHER, SELFPAY ==
[2024-09-25 02:09] VITALS: BP 117/90; PULSE 78; RESP 18; TEMP 2.7; TEMP 36.8; O2SAT 98; BMI 31.2
--- OUTSIDE RECORDS SUMMARY | 2024-09-25 02:48 | XMS_ITS | Referral Summary ---
Author Organization [facility] Address [address] [place] [address] Care Team Providers Care Pewter Finisher Name Role Phone Bryson Smith MD Primary Care Provider [phone] Allergies No known active allergies Medications * [...] 02/09/2023 5:00 AM EDT Plan of Treatment Not on file Insurance [facility] [place] [id number] Care Teams Pewter Finisher Relationship Specialty Start Date End Date Bryson Smith MD [address] [place] [id number] PCP - General 12/27/16
--- OUTSIDE RECORDS SUMMARY | 2024-09-25 02:48 | XMS_ITS | Clinical Summary ---
Author Organization [facility] Address [address] [place] [address] Care Team Providers Care Courtesy Clerk Name Role Phone Bryson Smith MD Primary Care Provider [phone] Allergies No known active allergies Medications * [...] patient's age to complete this topic Insurance [facility] Care Teams Courtesy Clerk Relationship Specialty Start Date End Date Bryson Smith MD [address] [place] [address] PCP - General 12/27/16
--- NOTE | 2024-09-25 03:22 | ED_ITS ---
<Statement entered by Dat Macias MD - 09/26/24 20:13> Time: 07:32 Date: 09/25/24 Provider: Dat Macias MD Physician observation ended at 07:32. the patient was observed overnight and there were no incidents. The patient was waiting to talk to the recovery team for help with his substance use disorder. When he woke up in the morning however the patient became verbally assaultive to the female staff, threatening legal action if he was not allowed to leave. He used profanity and foul language when addressing the staff. I did talk to the patient and he states that he no longer wants to wait in the emergency department for recovery team evaluation. The patient denies suicidal or homicidal ideation and does feel safe being discharged. The patient was given a list of numbers for outpatient detox programs and the number and address for our [facility] program. The patient was given back is belongings and discharged from the emergency department. HPI - Alcohol General Chief Complaint: ETOH/Substance Use Stated Complaint: ETOH Time Seen by Provider: 09/25/24 03:18 Source: patient and EMS Mode of arrival: EMS Limitations: no limitations History of Present Illness ED Provider: Dr. Sydni Landers HPI narrative: Patient comes to the emergency room , seeking detox for alcohol. Patient states that he drinks at least a 12 pack per day. His last drink was today, few minutes before he arrived to emergency room. Patient denies suicidal homicidal ideation. Related Data Previous Rx's ?Medication ?Instructions ?Recorded nicotine (polacrilex) 4 mg gum 4 mg buccal Q2H 30 days #100 ea 09/15/24 divalproex 500 mg tablet,extended 1,000 mg (2 x 500 mg) PO BEDTIME 09/16/24 release 24 hr 30 days #60 tabs hydroxyzine HCl 50 mg tablet 50 mg PO Q6H PRN mild anxiety 30 09/16/24 days #60 tabs lactulose 10 gram/15 mL oral 20 g (30 mL) PO BID 30 days #1,800 09/16/24 solution mL lithium carbonate 300 mg 600 mg (2 x 300 mg) PO DAILY 30 09/16/24 tablet,extended release days #60 tabs quetiapine 200 mg tablet 200 mg PO DAILY 30 days #30 tabs 09/16/24 quetiapine 400 mg tablet 400 mg PO BEDTIME 30 days #30 tabs 09/16/24 trazodone 50 mg tablet 50 mg PO BEDTIME PRN Insomnia 30 09/16/24 days #30 tabs levocarnitine (with sugar) 100 330 mg PO TID 30 days #500 mL 09/18/24 mg/mL oral solution acetaminophen 500 mg tablet 500 mg PO Q6H PRN fever or pain 09/19/24 (Tylenol Extra Strength) #14 tabs ibuprofen 800 mg tablet 800 mg PO Q8H PRN pain #14 tabs 09/19/24 Allergies Allergy/AdvReac Type Severity Reaction Status Date / Time No Known Allergies Allergy Verified 09/25/24 02:11 Review of Systems 2 Review of Systems: Constitutional : No Weight loss, No Fever, No Chills, No Night Sweats, No Fatigue, No Malaise ENT/Mouth : No Hearing loss, No Ear Pain, No Nasal Congestion, No Sinus Pain, No Hoarseness, No sore throat, No Rhinorrhea, No Swallowing Difficulty Eyes: No Eye Pain, No Swelling, No Redness, No Foreign Body, No Discharge, No Vision Changes Cardiovascular : No Chest Pain, No SOB, No Dyspnea on Exertion, No Orthopnea, No Edema, No Palpitations Respiratory : No Cough, No Sputum, No Wheezing, No Smoke Exposure, No Dyspnea Gastrointestinal : No Nausea, No Vomiting, No Diarrhea, No Constipation, No abdominal Pain, No Hematochezia, No Melena Genitourinary : no irregular bleeding, No Dysuria, No Urinary Frequency, No Hematuria, No Urinary Incontinence, No Urgency, No Flank Pain, No Urinary Flow Changes, No Hesitancy Musculoskeletal : No joint pain, No Myalgias, No Joint Swelling Skin : No Skin Lesions, No rash Neuro : No Weakness, No Numbness, No Paresthesias, No Loss of Consciousness, No Dizziness, No Headache Psych : No Anxiety/Panic, No Depression, denies SI or HI, complaining of alcohol intoxication and cocaine use Heme/Lymph: No Bruising, No Bleeding,No Lymphadenopathy Endocrine : No Polyuria, No Polydipsia, No Temperature Intolerance [facility] Past Medical History Medical History Polysubstance use disorder Cocaine use disorder Alcohol use disorder Social History Social History Household Members: Friend(s) Housing: Apartment Do you presently have visiting nurse or other home services: No Alcohol intake: current Alcohol intake frequency: 3 or more drinks per day Comment: 1:1 observation. Patient Tobacco Use Status: Current everyday Tobacco user Tobacco use type: Cigarette Cigarette Packs Per Day: 1.5 Cigarettes Per Day: 30.0 Smoked in Last 30 Days: Yes Use of substances other than those prescribed or required for medical reasons: Yes Substance Use Type: Crack/Cocaine and Marijuana Substance Use Frequency: Chronic Longstanding Advance Directives: No Do you have a plan to hurt others: No Plan service: Yes Sexual orientation: Straight/Heterosexual Physical Exam ED Vital Signs: Vital Signs - 24 hr 09/25/24 02:09 09/25/24 06:43 Temperature 36.8 F L 97.5 F Pulse Rate 78 70 Respiratory Rate 18 18 Blood Pressure 117/90 H 144/89 H Pulse Oximetry 98 99 Oxygen Delivery Method Room Air Room Air BMI result Body Mass Index 31.2 Const Other: Appearance: Alert. Oriented X3. No acute distress. Eyes: Pupils equal, round and reactive to light. ENT: Pharynx normal. Neck: Normal inspection. Neck supple. No lymph nodes noted. No crepitus CVS: Normal heart rate and rhythm. Pulses normal. Normal S1 and S2 Respiratory: No respiratory distress. Breath sounds normal. No Wheezing. No rales Abdomen: Soft and nontender. No rigidity. No distention. Skin: Skin warm and dry. Normal skin color. Normal skin turgor. Extremities: No lower extremity edema. No Lacerations. No Rash Neuro: Oriented X 3. No motor deficit. No sensory deficit. Moving all extremities. No slurred speech. CN 2 through 12 grossly intact Psych: calm, cooperative, normal affect Course Course Course Narrative: Patient seems to be under the influence of alcohol. However, patient is alert and oriented x3, able to have a coherent conversation. All of patient's labs pending CARE medicine pending Physician observation started at 03:29 Medical Decision Making Medical Decision Making MDM Narrative: Patient currently intoxicated, no signs of alcohol withdrawal. Vitals are stable Patient is not SI or HI, section 12 is not indicated at this time Differential Diagnosis Differential Diagnoses: The differential diagnosis associated with the presentation includes (Anxiety, depression, alcohol abuse, polysubstance abuse) Admission/Observation Consideration of admission/observation: Escalation of care including admission/observation considered (Patient is under physician observation waiting to be seen by the care team, patient is seeking detox for EtOH) Lab Data 09/25/24 03:25 09/25/24 03:25 Labs: Lab Results 09/25/24 09/25/24 Range/Units 03:25 06:36 WBC 10.6 (4.8-10.8) X10*3/uL RBC 5.14 (4.60-5.80) X10*6/uL Hgb 13.8 L (14.0-18.0) g/dl Hct 42.8 (42.0-52.0) % MCV 83.3 (80.0-98.0) fL MCH 26.8 L (27.0-33.0) pg MCHC 32.2 (31.0-36.0) g/dl RDW 13.9 (11.0-16.0) % Plt Count 323 (160-400) X10*3/uL MPV 9.4 (9.4-12.4) fL Immature Gran % (Auto) 0.4 (0.0-0.4) % Neut % (Auto) 71.8 (45-73) % Lymph % (Auto) 19.4 L (20-40) % [place] % (Auto) 6.9 (2-11) % Eos % (Auto) 0.9 (0-4) % Baso % (Auto) 0.6 (0-2) % Lymph # (Auto) 2.1 (1.2-4.9) X10*3/uL [place] # (Auto) 0.7 (0.1-1.2) X10*3/uL Eos # (Auto) 0.1 (0.0-0.4) X10*3/uL Baso # (Auto) 0.1 (0.0-0.2) X10*3/uL Abs Immat Gran (auto) 0.04 H (0.00-0.03) X10*3/uL Absolute Neuts (auto) 7.6 (2.0-8.3) x10*3/uL Absolute Nucleated RBC 0.000 (0.0-0.012) X10*3/uL Nucleated RBC % (auto) 0.0 (0.0-0.2) /100WBC Sodium 143 (135-145) mmol/L Potassium 4.0 (3.3-5.1) mmol/L Chloride 108 (96-108) mmol/L Carbon Dioxide 26 (22-29) mmol/L Anion Gap 13 (12-20) BUN 6 L (9-16) mg/dL Creatinine 0.75 (0.5-1.4) mg/dL Estim Creat Clear Calc 176.5 Estimated GFR > 60 Random Glucose 106 (60-115) mg/dL Calcium 9.5 D (8.4-10.2) mg/dL Magnesium 2.4 (1.6-2.6) mg/dL Total Bilirubin 0.4 (0.0-1.0) mg/dL AST 27 (5-37) U/L ALT 29 (0-40) U/L Alkaline Phosphatase 70 (39-117) U/L Total Protein 7.3 (6.5-8.0) g/dL Albumin 4.6 (3.5-5.0) g/dL Urine Opiates Screen POSITIVE H Not Detected (Not Detect) Ur Buprenorphine Scrn Not Detected Not Detected (Not Detect) ng/mL Ur Oxycodone Screen Positive H Not Detected (Not Detect) ng/mL Urine Methadone Screen Not Detected Not Detected (Not Detect) ng/mL Urine Fentanyl Screen Not Detected Not Detected (Not Detect) Ur Barbiturates Screen Not Detected Not Detected (Not Detect) Ur Phencyclidine Scrn Not Detected Not Detected (Not Detect) Ur Amphetamines Screen Not Detected Not Detected (Not Detect) U Benzodiazepines Scrn Not Detected Not Detected (Not Detect) Urine Cocaine Screen Not Detected POSITIVE H (Not Detect) U Marijuana (THC) Screen Not Detected POSITIVE H (Not Detect) Ethyl Alcohol < 10 mg/dL Critical Care Time Critical Care Time Critical Care Time: Yes Total Critical Care Time: 35 Attestation: I have personally provided critical care time. Time includes review of lab data, radiology results, discussion with consultants, and monitoring for potential decompensation. Intervention performed as documented. Discharge Plan Discharge Clinical Impression: Alcohol use disorder, Cocaine use disorder Patient Disposition: Home, Self-Care Additional Instructions: Your blood work was unremarkable. Your urine tox screen was positive for cocaine and marijuana (THC). Your medically cleared at this point to pursue detox as an outpatient. We are giving you a list of detox numbers that you can call to try to get into a detox program. I also recommend that you contact our [facility] and they can assist you as an outpatient to get help with your alcohol and cocaine use. Continue taking medications as prescribed by your providers Follow-up with your doctor in 2 days. Please return to the emergency department if your symptoms get worse or if you develop any symptoms that are concerning to you. Alcohol use disorder You were seen in the Emergency Department today for treatment of alcohol use disorder.? You may have been given medications to help with your withdrawal symptoms.? Please do not drink alcohol with them. This is very dangerous and can cause respiratory depression or other adverse reactions depending on the medication. If you would like to cut down or stop your alcohol use please consider calling our outpatient Addiction Treatment office:? [facility] (M-F 9a-5p) [address] ? You have also been given a list of treatment providers in the area that can assist as well.? If you experience seizures, vomiting blood, black stools, falls, severe headache, chest pain, fevers, trouble breathing, hallucinations or any other concerns you need to call 911 or seek immediate care. Please stay hydrated. Prescriptions: No Action nicotine (polacrilex) 4 mg gum 4 mg buccal Q2H 30 Days Qty: 100 0RF divalproex 500 mg Tablet Extended Release 24 Hr 1,000 mg PO BEDTIME 30 Days Qty: 60 0RF lithium carbonate 300 mg Tablet Extended Release 600 mg PO DAILY 30 Days Qty: 60 0RF hydroxyzine HCl 50 mg Tablet 50 mg PO Q6H PRN (Reason: mild anxiety) 30 Days Qty: 60 0RF quetiapine 200 mg Tablet 200 mg PO DAILY 30 Days Qty: 30 0RF trazodone 50 mg Tablet 50 mg PO BEDTIME PRN (Reason: Insomnia) 30 Days Qty: 30 0RF lactulose 10 gram/15 mL Solution 20 g PO BID 30 Days Qty: 1800 0RF quetiapine 400 mg tablet 400 mg PO BEDTIME 30 Days Qty: 30 0RF levocarnitine (with sugar) 100 mg/mL solution 330 mg PO TID 30 Days Qty: 500 0RF ibuprofen 800 mg tablet 800 mg PO Q8H PRN (Reason: pain) Qty: 14 0RF acetaminophen [Tylenol Extra Strength] 500 mg tablet 500 mg PO Q6H PRN (Reason: fever or pain) Qty: 14 0RF Print Language: Burundian
[2024-09-25 03:30] LABS: MANUAL DIFF FLAG NO
--- NOTE | 2024-09-25 03:32 | PC.NURSE ---
belongings in [facility] shelf 2.
--- NOTE | 2024-09-25 03:32 | PC.NURSE ---
pt very restless and manic, up and down on the stretcher, lots of thoughts and words.
[2024-09-25 03:43] LABS: Basophils Absolute Auto 0.1 X10*3/uL (0.0-0.2); Basophils Percent Auto 0.6 % (0-2); Eosinophils Absolute Auto 0.1 X10*3/uL (0.0-0.4); Eosinophils Percent Auto 0.9 % (0-4); Hematocrit 42.8 % (42.0-52.0); Hemoglobin 13.8 g/dl (14.0-18.0); Imm Gran Abs Auto 0.04 X10*3/uL (0.00-0.03); Imm Gran Pct Auto 0.4 % (0.0-0.4); Lymphocytes Absolute Auto 2.1 X10*3/uL (1.2-4.9); Lymphocytes Percent Auto 19.4 % (20-40); Mean Corpuscular HGB Conc 32.2 g/dl (31.0-36.0); Mean Corpuscular Hemoglobin 26.8 pg (27.0-33.0); Mean Corpuscular Volume 83.3 fL (80.0-98.0); Mean Platelet Volume 9.4 fL (9.4-12.4); Monocytes Absolute Auto 0.7 X10*3/uL (0.1-1.2); Monocytes Percent Auto 6.9 % (2-11); Neutrophils Absolute Auto 7.6 x10*3/uL (2.0-8.3); Neutrophils Percent Auto 71.8 % (45-73); Platelet Count 323 X10*3/uL (160-400); Red Blood Count 5.14 X10*6/uL (4.60-5.80); Red Cell Distribution Width 13.9 % (11.0-16.0); White Blood Count 10.6 X10*3/uL (4.8-10.8)
[2024-09-25 03:55] LABS: Amphetamine Screen Urine Not Detected (Not Detect); Barbiturates, Urine Not Detected (Not Detect); Benzodiazepines Screen Urine Not Detected (Not Detect); Buprenorphine Scr Not Detected (Not Detect); Cannabinoid Screen Urine Not Detected (Not Detect); Cocaine Screen Urine Not Detected (Not Detect); Fentanyl, urine Not Detected (Not Detect); Methadone Screen, Urine Not Detected (Not Detect); Opiate Screen Urine POSITIVE (Not Detect); Oxycodone Screen Urine Positive (Not Detect); Phencyclidine Screen Urine Not Detected (Not Detect)
[2024-09-25 03:56] LABS: Alanine Aminotransferase 29 U/L (0-40); Albumin Level 4.6 g/dL (3.5-5.0); Alkaline Phosphatase 70 U/L (39-117); Anion Gap 13 (12-20); Aspartate Amino Transferase 27 U/L (5-37); Bilirubin Total 0.4 mg/dL (0.0-1.0); Blood Urea Nitrogen 6 mg/dL (9-16); Calcium 9.5 mg/dL (8.4-10.2); Carbon Dioxide 26 mmol/L (22-29); Chloride 108 mmol/L (96-108); Creatinine Clr Calc Pharmacy 176.5; Estimated Glomerular Filt Rate > 60; Ethanol < 10 mg/dL; Glucose Random 106 mg/dL (60-115); Sodium 143 mmol/L (135-145); Total Protein 7.3 g/dL (6.5-8.0)
[2024-09-25 04:34] LABS: Magnesium 2.4 mg/dL (1.6-2.6)
--- NOTE | 2024-09-25 06:09 | PC.NURSE ---
pt was resting comfortably for a few hours. pt now awake and restless
--- NOTE | 2024-09-25 06:33 | PC.NURSE ---
2nd MALONEY obtained, duplicate order placed earlier. pt does not believe MALONEY results, 2nd one sent to confirm
[2024-09-25 06:43] VITALS: BP 144/89; PULSE 70; RESP 18; TEMP 36.4; O2SAT 99
[2024-09-25 06:54] LABS: Amphetamine Screen Urine Not Detected (Not Detect); Barbiturates, Urine Not Detected (Not Detect); Benzodiazepines Screen Urine Not Detected (Not Detect); Buprenorphine Scr Not Detected (Not Detect); Cannabinoid Screen Urine POSITIVE (Not Detect); Cocaine Screen Urine POSITIVE (Not Detect); Fentanyl, urine Not Detected (Not Detect); Methadone Screen, Urine Not Detected (Not Detect); Opiate Screen Urine Not Detected (Not Detect); Oxycodone Screen Urine Not Detected (Not Detect); Phencyclidine Screen Urine Not Detected (Not Detect)
--- NOTE | 2024-09-25 07:22 | PC.NURSE ---
Pt in hallway swearing, verbally abusive to staff; pt telling this RN to suck his freya, stick it in your ass. You're a whore, a cunt, a bitch , etc; pt attempting to take pictures of staff; security called twice, no response at this time
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
[2024-09-25 07:32] VITALS: BP 000/000; PULSE 0; RESP 0; TEMP -17.7; TEMP 0
== END 2024-09-25 07:34 | disposition home or self-care (01) ==
PROVIDERS: Emergency Medicine; Emergency Provider Emergency Medicine Emergency Medical Services
DX: F10.10 Alcohol abuse, uncomplicated (principal); Y90.0 Blood alcohol level of less than 20 mg/100 ml; F14.10 Cocaine abuse, uncomplicated; F12.90 Cannabis use, unspecified, uncomplicated; Z51.81 Encounter for therapeutic drug level monitoring; Z79.899 Other long term (current) drug therapy
CPT/HCPCS: 36415; 80053; 80307; 83735; 85025; 99284

== ENCOUNTER 2024-09-27 17:47 | Emergency (ER) | payer OTHER, SELFPAY ==
[2024-09-27 17:48] VITALS: BP 116/89; PULSE 103; RESP 18; TEMP 36.9; O2SAT 99; BMI 32.0
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
[2024-09-27 18:07] VITALS: RESP 16
--- OUTSIDE RECORDS SUMMARY | 2024-09-27 18:16 | XMS_ITS | Clinical Summary ---
Author Organization [facility] Address [address] [place] [address] Care Team Providers Care Equipment Associate Name Role Phone Bryson Smith MD Primary Care Provider [phone] Allergies No known active allergies Medications * [...] patient's age to complete this topic Insurance [facility] Care Teams Equipment Associate Relationship Specialty Start Date End Date Bryson Smith MD [address] [place] [address] PCP - General 12/27/16
--- OUTSIDE RECORDS SUMMARY | 2024-09-27 18:16 | XMS_ITS | Referral Summary ---
Author Organization [facility] Address [address] [place] [address] Care Team Providers Care Campground Caretaker Name Role Phone Bryson Smith MD Primary Care Provider [phone] Allergies No known active allergies Medications * [...] Plan of Treatment Not on file Insurance [facility] [place] [id number] Care Teams Campground Caretaker Relationship Specialty Start Date End Date Bryson Smith MD [address] [place] [id number] PCP - General 12/27/16
[2024-09-27 18:32] LABS: MANUAL DIFF FLAG NO
[2024-09-27 18:33] LABS: Amphetamine Screen Urine Not Detected (Not Detect); Barbiturates, Urine Not Detected (Not Detect); Benzodiazepines Screen Urine Not Detected (Not Detect); Buprenorphine Scr Not Detected (Not Detect); Cannabinoid Screen Urine POSITIVE (Not Detect); Cocaine Screen Urine Not Detected (Not Detect); Fentanyl, urine Not Detected (Not Detect); Methadone Screen, Urine Not Detected (Not Detect); Opiate Screen Urine Not Detected (Not Detect); Oxycodone Screen Urine Not Detected (Not Detect); Phencyclidine Screen Urine Not Detected (Not Detect)
[2024-09-27 18:33] LABS: Basophils Absolute Auto 0.1 X10*3/uL (0.0-0.2); Basophils Percent Auto 0.5 % (0-2); Eosinophils Absolute Auto 0.1 X10*3/uL (0.0-0.4); Eosinophils Percent Auto 0.8 % (0-4); Hematocrit 42.6 % (42.0-52.0); Hemoglobin 13.4 g/dl (14.0-18.0); Imm Gran Abs Auto 0.05 X10*3/uL (0.00-0.03); Imm Gran Pct Auto 0.4 % (0.0-0.4); Lymphocytes Absolute Auto 1.4 X10*3/uL (1.2-4.9); Lymphocytes Percent Auto 10.1 % (20-40); Mean Corpuscular HGB Conc 31.5 g/dl (31.0-36.0); Mean Corpuscular Hemoglobin 26.3 pg (27.0-33.0); Mean Corpuscular Volume 83.5 fL (80.0-98.0); Mean Platelet Volume 9.4 fL (9.4-12.4); Monocytes Absolute Auto 0.8 X10*3/uL (0.1-1.2); Monocytes Percent Auto 5.8 % (2-11); Neutrophils Absolute Auto 11.7 x10*3/uL (2.0-8.3); Neutrophils Percent Auto 82.4 % (45-73); Platelet Count 294 X10*3/uL (160-400); Red Cell Distribution Width 13.5 % (11.0-16.0); White Blood Count 14.2 X10*3/uL (4.8-10.8)
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
[2024-09-27 18:51] LABS: Acetaminophen LAB < 3 mcg/mL (<30); Alanine Aminotransferase 26 U/L (0-40); Albumin Level 4.8 g/dL (3.5-5.0); Alkaline Phosphatase 62 U/L (39-117); Anion Gap 11 (12-20); Aspartate Amino Transferase 28 U/L (5-37); Bilirubin Total 0.3 mg/dL (0.0-1.0); Blood Urea Nitrogen 9 mg/dL (9-16); Calcium 9.8 mg/dL (8.4-10.2); Carbon Dioxide 24 mmol/L (22-29); Chloride 109 mmol/L (96-108); Creatinine Clr Calc Pharmacy 169.8; Estimated Glomerular Filt Rate > 60; Ethanol < 10 mg/dL; Glucose Random 107 mg/dL (60-115); Potassium 4.4 mmol/L (3.3-5.1); Salicylate < 5.0 mg/dL (15-30); Sodium 140 mmol/L (135-145); Total Protein 7.4 g/dL (6.5-8.0)
[2024-09-27 19:03] LABS: Lithium 0.41 mmol/L (0.60-1.20)
--- NOTE | 2024-09-27 20:11 | PC.NURSE ---
pt resting comfortably with eyes closed, breathing even and unlabored. no apparent distress noted at this time
[2024-09-27 22:52] VITALS: BP 117/75; PULSE 75; RESP 16; TEMP 36.9; O2SAT 99
[2024-09-27 22:58] LABS: Appearance Urine Clear; Color Urine Yellow; Glucose Urine UA Negative (Negative); Leukocyte Esterase Urine Negative (Negative); Nitrite Urine Negative (Negative); Specific Gravity - Urine >= 1.030 (1.005-1.025); Urine Blood Negative (Negative); Urine Ketones Trace mg/dL (Negative); Urine Protein Trace mg/dL (Neg-Trace)
[2024-09-28 04:55] VITALS: BP 129/74; PULSE 64; RESP 17; TEMP 36.6; O2SAT 100
--- NOTE | 2024-09-28 05:51 | PC.NURSE ---
pt awake and alert at this time, juice provided per request. pt denies etoh withdrawal. asking for home meds.
--- NOTE | 2024-09-28 07:44 | PC.NURSE ---
Assumed care of patient at 0645, patient appears to be in no apparent distress this am, ambulating around BH pod, offering no complaints. Pt did speak with CARE athletic team physician briefly. Continue plan of care for IPLOC
[2024-09-28] MEDS: Lithium Carbonate ER 300 MG TABLET.ER 600 MG PO (08:20)
[2024-09-28] MEDS: QUEtiapine Fumarate 200 MG TABLET PO (08:20)
--- NOTE | 2024-09-28 09:48 | PC.NURSE ---
Late entry: patient agitated this am after speaking with CARE steamblaster. Pt angry that he is not going inpatient today as there are no beds. Patient threatening stating he will call his rotary dump operator to get him out. Pt pacing. Pt did refuse PRNs. Patient now sleeping, RR even and unlabored
--- NOTE | 2024-09-28 10:09 | PC.NURSE ---
Patient refusing all lab work stating not until someone comes to talk to me (referring to psychiatry)
--- NOTE | 2024-09-28 11:54 | PC.NURSE ---
patient notified by CARE team that he will not be getting discharged today, patient then went back to sleep, respirations even and unlabored
--- NOTE | 2024-09-28 12:25 | PC.NURSE ---
patient on phone with friend asking him to tell his the following: tell her that I want a divorce, she's a dumb fucking slut, I never wanted to be with her, tell her she can suck a fat cock. If I can answer the phone when shes fucked up, she can answer the phone when I'm fucked up . Pt then called another individual stating tell mom she can suck it, shes a fucking bitch, I want you to tell her I am calling her a dumb little cunt . Pt now showering to help himself calm down
[2024-09-28 12:29] VITALS: PULSE 76; RESP 16; O2SAT 97
--- NOTE | 2024-09-28 13:01 | PC.NURSE ---
pt continuing to escalate on phone, stating well she's my fucking , I can call her a bitch if I wanna . This RN attempted to redirect patient, encouraging him to spend time in his room or watch TV in common area. Patient told this RN to fuck off . Pt stating that he will get the fuck up outta here if he wants to . This RN offered PO medications to help him calm down, pt declined Dr. Santos made aware via tiger text. Plan for IM Zyprexa
[2024-09-28] MEDS: OLANZapine 10 MG VIAL IM (13:15)
--- NOTE | 2024-09-28 13:37 | PHA.MEDREC ---
Pharmacy Consult ? Medication Reconciliation Pharmacy has completed the medication reconciliation. Reviewed med rec done by nursing, also utilized claim history
[2024-09-28 13:45] VITALS: BP 125/73; PULSE 80; RESP 16; TEMP 36.6; O2SAT 99
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
[2024-09-28 14:09] VITALS: BP 116/77; PULSE 82; RESP 16; TEMP 36.5; O2SAT 100
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
[2024-09-28 17:01] LABS: MANUAL DIFF FLAG NO
[2024-09-28 17:05] LABS: Basophils Percent Auto 0.5 % (0-2); Eosinophils Absolute Auto 0.2 X10*3/uL (0.0-0.4); Eosinophils Percent Auto 3.1 % (0-4); Hematocrit 43.2 % (42.0-52.0); Hemoglobin 13.9 g/dl (14.0-18.0); Imm Gran Abs Auto 0.03 X10*3/uL (0.00-0.03); Imm Gran Pct Auto 0.4 % (0.0-0.4); Lymphocytes Absolute Auto 2.1 X10*3/uL (1.2-4.9); Lymphocytes Percent Auto 27.2 % (20-40); Mean Corpuscular HGB Conc 32.2 g/dl (31.0-36.0); Mean Corpuscular Hemoglobin 26.5 pg (27.0-33.0); Mean Corpuscular Volume 82.4 fL (80.0-98.0); Mean Platelet Volume 10.1 fL (9.4-12.4); Monocytes Absolute Auto 0.6 X10*3/uL (0.1-1.2); Monocytes Percent Auto 7.9 % (2-11); Neutrophils Absolute Auto 4.7 x10*3/uL (2.0-8.3); Neutrophils Percent Auto 60.9 % (45-73); Platelet Count 242 X10*3/uL (160-400); Red Blood Count 5.24 X10*6/uL (4.60-5.80); Red Cell Distribution Width 13.7 % (11.0-16.0); White Blood Count 7.8 X10*3/uL (4.8-10.8)
[2024-09-28 17:15] LABS: Ammonia 64 umol/L (13-55)
[2024-09-28 17:25] LABS: Valproate < 12.5 mcg/mL (50.0-100.0)
--- NOTE | 2024-09-28 20:17 | MHC.CARE ---
Late Entry; After case consultation/ psychiatry consult with Dr. Velásquez plan for Pt to be discharged to the community tomorrow 09/29/24 t/w will be facillate, Pt aware of plan of care.
[2024-09-28] MEDS: Divalproex Sodium ER 500 MG TAB.ER.24H 1000 MG PO (21:10)
[2024-09-28] MEDS: traZODone HCL 50 MG TABLET PO (21:10)
[2024-09-28] MEDS: LORazepam 1 MG TABLET 2 MG PO (21:10)
[2024-09-28 21:11] VITALS: BP 102/78; PULSE 94; RESP 18; TEMP 36.8; O2SAT 97
[2024-09-28] MEDS: Nicotine Polacrilex 2 MG GUM BUCCAL (21:11)
[2024-09-28] MEDS: levOCARNitine Oral Sol 1,000 MG/10 ML UD Cup 330 MG PO (21:12)
[2024-09-28] MEDS: QUEtiapine Fumarate 400 MG TABLET PO (21:24)
[2024-09-29] MEDS: Nicotine Polacrilex 2 MG GUM BUCCAL ×2 (05:27→07:42)
[2024-09-29 06:14] VITALS: RESP 16
--- NOTE | 2024-09-29 06:38 | PC.NURSE ---
Patient slept through the night, no distress observed/reported, meds and meals compliant, disposition per care team is section 12 inpatient bed search, no behavior and safety concerns at this time, will continue to monitor.
[2024-09-29 06:41] VITALS: BP 107/77; PULSE 77; RESP 18; TEMP 36.5; O2SAT 98
[2024-09-29] MEDS: Lithium Carbonate ER 300 MG TABLET.ER 600 MG PO (07:32)
[2024-09-29] MEDS: QUEtiapine Fumarate 200 MG TABLET PO (07:32)
[2024-09-29] MEDS: levOCARNitine Oral Sol 1,000 MG/10 ML UD Cup 330 MG PO (07:33)
[2024-09-29] MEDS: hydrOXYzine HCL 50 MG TABLET PO (08:41)
== END 2024-09-29 09:25 | disposition home or self-care (01) ==
PROVIDERS: Nurse Practitioner Family; Psychiatry & Neurology Psychiatry; Emergency Provider Emergency Medicine
DX: F31.9 Bipolar disorder, unspecified (principal); F10.90 Alcohol use, unspecified, uncomplicated; F14.10 Cocaine abuse, uncomplicated
CPT/HCPCS: 36415; 80053; 80143; 80164; 80178; 80179; 80307; 81003; 82140; 85025; 96372; 99285; J2359; S9485

== ENCOUNTER → 2024-09-27 18:13 | Outpatient (BNV) | payer OTHER, SELFPAY | PROVIDERS: Emergency Provider Emergency Medicine; Visit Provider Psychiatry & Neurology Psychiatry | DX: F31.9 Bipolar disorder, unspecified (principal); F10.90 Alcohol use, unspecified, uncomplicated; F14.10 Cocaine abuse, uncomplicated | CPT/HCPCS: 99283 ==